=== PATIENT | male | born 1975 | race Caucasian/White ===

== ENCOUNTER 2016-10-12 11:15 | Inpatient (IN) | payer BC ==
[~2016-10-12] VITALS: Ht 182.9 cm; Wt 113.2 kg
--- NOTE | 2016-10-15 12:47 | CO ---
ADMIT: 10/12/2016 RM/LOC: 618 [facility] MR#: [id number] [id number] [place], [place] [address] [facility] [address] [place] [address] Consultation SEX: M AGE: 41 : 1975 DATE OF CONSULTATION: 10/14/2016 ATTENDING PHYSICIAN: Macario Bettencourt CONSULTING PHYSICIAN: Jack Padilla MD HISTORY OF PRESENT ILLNESS: Thank you for having me see Mr. Park. As you know, he is a 41-year-old, white male, who was admitted to [facility] on October 12 complaining of worsening right hip pain. About 3 days before that, he had been at work. 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 He said he felt a little mild pain in the right groin area immediately afterwards, but it was not severe. He was able to stand and walk immediately afterwards without difficulty. The next day, he felt okay, but the day after that he had so much pain in the hip that he could barely stand. He presented to the emergency room and then was admitted for further evaluation and pain control. He does have a history of chronic pain for which he sees Dr. Tarsha Bettencourt at the pain clinic and is on chronic narcotics for that. A CT scan of the pelvis on the day of admission was interpreted as normal. An MRI scan the next day showed an effusion in the hip joint with a nodular density - possibly a loose body - as well as a muscle strain or avulsion injury of the vastus lateralis and iliopsoas muscles. There was no fracture, but there was some edema in the soft tissues. Because of that, he underwent hip joint aspiration by Interventional Radiology, 15 mL of serosanguineous fluid were aspirated and sent for lab. Cultures are pending as are crystals, but the fluid did have a high a white count of 22,230 and an RBC count of 27,000. Because of his somewhat unusual presentation, I was consulted. PAST MEDICAL HISTORY: Significant for the back pain and L4-5 fusion. He also has history of hypertension. REVIEW OF SYSTEMS: HEENT: No sicca or xerostomia. He does have some occasional high dysphagia. SKIN: No rashes including psoriasis. HEART: He has a history of hypertension. No chest pain or palpitations. RESPIRATORY: No cough or wheeze. GI: As mentioned above, he does have some high dysphagia and also has reflux. GENITOURINARY: He had kidney stones several years ago. He is not sure, but thinks they might have been calcium. NEUROLOGIC: No history of head injury or seizures. MEDICATIONS: He was given a single dose of prednisone 60 mg today and had been on a Dilaudid pump. He is now on: 1. Lortab 7.5 mg q.i.d. 2. HydroDIURIL 25 mg daily. 3. OxyContin 20 mg t.i.d. PHYSICAL EXAM: GENERAL: He is a pleasant, young white man. He is a little drowsy at first, but answered all questions appropriately. VITAL SIGNS: Not in the chart. ADMIT: 10/12/2016 RM/LOC: 618 [facility] MR#: [id number] [facility] [address] [address] [place] [facility] [address] [place] [address] Consultation SEX: M AGE: 41 : 1975 HEENT: Pupils equal, round, reactive to light. Sclerae and conjunctivae are unremarkable. Oral mucosa was pink and moist without lesions. He has an upper denture in place. There were no mouth sores or redness in the throat. SKIN: Revealed no rashes. HEART: Regular without murmur or rub. LUNGS: Clear to auscultation and resonant to percussion bilaterally. ABDOMEN: Soft, nontender. No palpable organomegaly. EXTREMITIES: He moves the right shoulder okay, the left was tender, particularly with palpation of the bicipital tendon and he had a positive Yergason's sign. There was no obvious synovitis in the hands, knees, ankles, or feet but he was somewhat tender to compression across the metatarsals on the left foot. Left hip moved quite well and was nontender. The right hip, however, could only be flexed to about 30 degrees because of pain. He also was tender with log rolling. LABORATORY DATA: CBC revealed a white count of 12.7 on admission, but this has decreased to 10.2, white count was 15.4 with platelets 254,000. C-reactive protein has increased from 3.68 to 8.3, sedimentation rate was initially 15 but this has increased to 29 mm/hour. X-ray, CT, and MRI interpretations were mentioned above. IMPRESSION: 1. Hip pain. He has an effusion and a possible loose body, as well as a possible muscle strain of the vastus lateralis and iliopsoas noted on MRI. 2. History of L4-5 fusion. 3. Chronic pain syndrome. He sees Dr. Tarsha Bettencourt at the pain clinic for that. 4. Left bicipital tendinitis. RECOMMENDATIONS: I look forward to seeing the results of the crystal analysis ADMIT: 10/12/2016 RM/LOC: 618 [facility] MR#: [id number] [address] [place] [id number] [facility] [place] [address] Consultation SEX: M AGE: 41 : 1975 from the joint aspiration, it is also being cultured. I will check CPK and aldolase. If he has suffered a significant muscle injury, one or both of those should be elevated. I will also be checking a uric acid, and I would like to have the CRP repeated in the morning. I agree he may be a good candidate for hip arthroscopy, particularly to go after that loose body. Thanks for having me see this nice man. I will be happy to follow along while he is in the hospital. Jack Padilla MD/ darcie JOB #: [id number] CC: Macario Bettencourt, Attending Physician Raisa Obrien, Family Physician MD Macario Tong MD
--- NOTE | 2016-10-16 11:49 | CO ---
ADMIT: 10/12/2016 RM/LOC: 618 [facility] MR#: [id number] [id number] [place], [place] [address] [facility] [address] [place] [address] Consultation SEX: M AGE: 41 : 1975 DATE OF CONSULTATION: 10/13/2016 ATTENDING PHYSICIAN: Macario Bettencourt CONSULTING PHYSICIAN: Tyrese Lala MD SUBJECTIVE: Mr. Park is a 41-year-old white male, who was admitted to the emergency room with hip pain. 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 He denies any fevers, chills, night sweats, or any prodromal symptoms. He was admitted to the hospital for pain control. PHYSICAL EXAMINATION: Shows no erythema, redness, or swelling of the hip. He holds it flexed externally rotated. I can flex him up almost 90 degrees. Pain along the anterior hip and going into the greater trochanter with any type of motion. X-rays are negative. CT scan negative. MRI scan shows effusion of the hip. They also appears to have a loose body. To me it looks like it is probable articular piece versus synovial fold, but it would be very big synovial fold, I feel it is more of an articular piece. The patient also had a MRI scan of his low back. He has had previous low back fusion and has had chronic pain from this. No other findings on the low back were identified other than the effusion. ASSESSMENT AND PLAN: Right hip pain. At this point in time, he has been afebrile in the last few days in the hospital. His sedimentation rate is only 15. He does have a white count of 12, but he really does not look infected. I think the best thing to do is aspirate that hip to see if it will take some pressure of the hip capsule, this may be hematoma, but also I would send the fluid for Gram stain, culture, sensitivity, cell count, and crystals just to make sure. Also in the morning repeat CBC with diff, sedimentation rate, and C- reactive protein. The patient may be a candidate for hip arthroscopy down the line. This would probably have to be done in [place] or [place] where they have the longer arthroscopic equipment. Tyrese Lala MD/ darcie JOB #: [id number] CC: Macario Bettencourt, Attending Physician Raisa Obrien, Family Physician
[2016-10-17] MEDS ORDERED: OXY-CONTIN20 MG PO (10:29)
[2016-10-17] MEDS ORDERED: NORCO 7.5-3251 EACH PO (10:32)
[2016-10-17] MEDS ORDERED: PROVENTIL2.5 MG/0.5 IH (10:33)
[2016-10-17] MEDS ORDERED: HYDROCHLOROTHIA25 MG PO (10:33)
[2016-10-17] MEDS ORDERED: OXY IR DPS5 MG PO (10:33)
[2016-10-17] MEDS ORDERED: DELTASONE DPS10 MG PO (10:35)
--- NOTE | 2016-10-19 18:56 | ER ---
ADMIT: 10/12/2016 RM/LOC: [address] [facility] MR#: [id number] [address] [place], [place] [address] [facility] [address] [place] [address] Emergency Room Report SEX: M AGE: 41 : 1975 DATE: 10/12/2016 ADDENDUM: A 41-year-old white male coming in with right hip pain. No trauma. X-rays are all negative. CTs are all negative. He still has pain out of proportion to his findings. I spoke with Dr. Kristopher Bettencourt and Nam Bettencourt, they are pain specialists. They said this is little different than what he normally has and they spoke to Macario Bettencourt, who will admit him for further workup and pain control. CONDITION ON DISCHARGE: Fair. Rufus Storey MD/ darcie JOB #: [id number] CC: Macario Bettencourt MD, Attending Physician Raisa Obrien MD, Family Physician
--- NOTE | 2016-10-30 06:50 | HP ---
ADMIT: 10/12/2016 RM/LOC: 618 [facility] MR#: [id number] [address] [place], [place] [address] [place] [address] [place] [address] History and Physical SEX: M AGE: 41 : 1975 DATE OF SERVICE: 10/12/2016 CHIEF COMPLAINT: Right hip pain. HISTORY OF PRESENT ILLNESS: Mr. Park is a very pleasant 41-year-old male, previously was following with Dr. Pearce as being admitted through the [facility], presented to the Emergency Department today with the above complaints. Apparently, over the last three days, he has been having more pain in his right outer and inner hip-groin area. The patient does have chronic pain from his back, follows with Tarsha Bettencourt MD, and is on chronic narcotics for that. He normally is very well controlled. He has a history of a L5 fusion. He did have some initial radiculopathy with the pain, but now it is more localized into the right groin region. Upon evaluation in the ER, there was concern for possible avascular necrosis or other possible etiology, and felt that he needed to be admitted for pain control as well as further workup for the etiology of this hip pain. The patient denies any redness or swelling. No fevers or chills. No other associated symptoms. He is actually supposed to go on a trip with his son for his bachelor green party this weekend and unfortunately, he is missing that. His pain is otherwise fairly well controlled. PAST MEDICAL HISTORY: 1. History of hypertension. 2. Noncompliant with medications. 3. History of chronic pain syndrome. 4. Opioid dependence. 5. History of L5 fusion. ALLERGIES: LISINOPRIL. MEDICATIONS: 1. Morphine. 2. P.R.N. Lortab. FAMILY HISTORY: Mom and dad are alive. No history of cancer in the family. SOCIAL HISTORY: No alcohol. Smokes about one to two packs a day. He is engaged. 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 No other drug use. REVIEW OF SYSTEMS: A 10-point review of systems obtained, per HPI, otherwise negative. PHYSICAL EXAMINATION: VITAL SIGNS: Blood pressure 160/97, pulse 76, respirations 16, temperature 99.1. GENERAL: Alert and oriented x3. Does not appear in acute distress, but does appear uncomfortable. HEENT: Pupils are equal, round, and reactive. Extraocular muscles intact. Throat clear. Trachea midline. ADMIT: 10/12/2016 RM/LOC: 618 [facility] MR#: [id number] [address] [address] [place] [facility] [address] [place] [address] History and Physical SEX: M AGE: 41 : 1975 HEART: Regular rate and rhythm. No murmurs, rubs, or gallops. LUNGS: Clear to auscultation bilaterally. No wheezes or crackles. ABDOMEN: Soft, nontender, and nondistended. No organomegaly. MUSCULOSKELETAL: Extremities without any significant edema. On exam of the hip, he does seem to have significant tenderness in the right groin area, worse with external-internal rotation of the hip. Knee examination is normal. No redness or swelling. SKIN: Normal. NEUROLOGIC: Cranial nerves II through XII grossly intact. No focal deficits. LABORATORY DATA: Labs pending. ASSESSMENT: A 41-year-old male with: 1. Acute right hip pain, concerning for possible vascular necrosis. 2. Nicotine use/dependence. 3. Chronic pain syndrome/lumbago. 4. Opioid dependence. 5. History of L5 fusion. 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 Plan for MRI of his hip and back tomorrow. Hopefully, we will get to the bottom of what is causing this acute pain as this is outside his normal chronic pain from his back. Macario Bettencourt MD/ darcie JOB #: [id number] CC: Macario Bettencourt, Attending Physician Raisa Obrien, Family Physician
--- NOTE | 2016-11-28 08:27 | DS ---
ADMIT: 10/12/2016 RM/LOC: 618 [facility] MR#: [id number] [address] [place], [place] [address] [place] [address] [place] [address] General Discharge Summary SEX: M AGE: 41 : 1975 ADMISSION DATE: 10/12/2016 DISCHARGE DATE: 10/16/2016 FINAL DIAGNOSES: 1. Right hip arthritis. 2. Right hip effusion with intra-articular body mass. 3. Chronic pain syndrome. 4. Nicotine dependence. 5. Hypertension. 6. History of L4-L5 fusion. CONSULTATIONS: Orthopedics with Dr. Lala and Rheumatology with Dr. Padilla. LABS AND IMAGING: Please refer to hospital record. Briefly, pertinent MRI of right hip showed right joint effusion, nodular density within the joint capsule, and edema. PERTINENT LABS: Joint aspiration of right hip was negative for an infection, gout, or other significant pathology. REASON FOR ADMISSION: Please refer to dictated H and P. Briefly, Mr. Park is a very pleasant 41-year-old male, admitted through the [facility] Call system as he was previously being seen by Dr. Pearce and follows with Dr. Obrien now. The patient had been having worsening 3 days of right hip pain to the point that he could not even walk. He presented to the ER for further workup and management. Given the fact that this pain was so severe, he was unable to ambulate on his own, he was admitted for further workup and management. HOSPITAL COURSE: The patient is admitted to [facility]. Routine orders. Proceeded with labs and imaging as noted above. Dr. Lala was consulted. Recommended Rheumatology consult. Given the findings, there were no rheumatologic causes for the pain. It was recommended that the patient have arthroscopic procedure as an outpatient given the foreign body in his hip capsule. He was on steroids during the hospitalization as well as SENIOR INTERACTIVE DEVELOPER pump. This was weaned over the course of his hospitalization. He will be discharged ADMIT: 10/12/2016 RM/LOC: 618 [facility] MR#: [id number] [address] [address] [place] [facility] [address] [place] [address] General Discharge Summary SEX: M AGE: 41 : 1975 on a steroid taper as they did help to some degree. He will follow up with his primary care provider and a pain specialist for ongoing pain. The patient was able to walk on day of discharge and was improved. Arrangements were made to see Orthopedics in [place] or [place]. DISCHARGE MEDS: Please refer to hospital record. DISCHARGE INSTRUCTIONS: The patient was instructed to take all medications as prescribed. Follow up with his primary care provider in 1 week. Consult us sooner if any worsening concerns or symptoms. DISCHARGE ACTIVITIES: Approximately 35 minutes. Macario Bettencourt MD/ darcie JOB #: [id number] CC: Macario Bettencourt MD, Attending Physician Raisa Obrien MD, Family Physician
== END 2016-10-16 12:15 | disposition home or self-care (01) | DRG 565 ==
LOC: ER 11:15 → 6PED 15:15
PROVIDERS: ADMIT Family Medicine
PROC: 0S993ZX Drainage of Right Hip Joint, Percutaneous Approach, Diagnostic (ICD-10-PCS; principal; 2016-10-12)
PROC: BQ10ZZZ Fluoroscopy of Right Hip (ICD-10-PCS; principal; 2016-10-12)
DX: M24.051 Loose body in right hip (principal); M25.451 Effusion, right hip; F11.20 Opioid dependence, uncomplicated; I10 Essential (primary) hypertension; G89.4 Chronic pain syndrome; M16.11 Unilateral primary osteoarthritis, right hip; M75.22 Bicipital tendinitis, left shoulder; F17.210 Nicotine dependence, cigarettes, uncomplicated; Z91.14 Patient's other noncompliance with medication regimen; Z98.1 Arthrodesis status